=== PATIENT | female | born 1990 | race American Indian/Alaskan Native ===

== ENCOUNTER 2019-02-11 14:02 | Emergency (ER) | payer BC ==
--- NOTE | 2019-02-11 16:41 | Emergency Department Report ---
HPI - General Chief Complaint: Syncope Time Seen by Provider: 02/11/19 16:10 - HPI HPI: 28-year-old female presents to the emergency department by EMS from work after she had a syncopal episode. The patient was sitting at her desk working on the computer when she says that the screen became blurry and it seemed brighter than usual. She had a mild headache. She then got up to go to the bathroom and began feeling lightheaded and dizzy. The patient decided she was going to go home and went to sign out and this is when she passed out. She woke up shortly afterwards with some other employees standing around her and EMS was called. The patient was found to have some low blood pressure and some tachycardia. An Accu-Chek was done and it was 266. Currently the patient is awake, alert and oriented and says that she just feels fatigued. The headache has since resolved. She does not have a primary care physician. Denies any to bacco or illicit drug use. History of insulin-dependent diabetes on Levemir. ED Past Medical Hx - Past Medical History Previous Medical History?: Yes Hx Diabetes: Yes (type 2 on levemir) - Surgical History Past Surgical History?: No - Social History Smoking Status: Never Smoker Substance Use Type: Alcohol - Medications Home Medications: Home Medications Medication Instructions Recorded Confirmed Last Taken Type Nitrofurantoin Wilkin/M-Cryst 100 mg PO Q12HR #14 capsule 02/11/19 Unknown Rx [Macrobid CAP] ED Review of Systems ROS: Stated complaint: LOW BP Other details as noted in HPI Comment: All other systems reviewed and negative Constitutional: denies: chills, fever Eyes: denies: eye pain, eye discharge ENT: denies: ear pain, throat pain Respiratory: denies: cough, shortness of breath Cardiovascular: syncope. denies: chest pain Gastrointestinal: denies: abdominal pain, vomiting Genitourinary: denies: dysuria, discharge Musculoskeletal: denies: back pain, arthralgia Skin: denies: rash, lesions Neurological: headache, other (dizziness, lightheadedness) Physical Exam - Physical Exam Vital Signs: Vital Signs 02/11/19 15:13 Pulse Rate 102 H Respiratory 18 Rate Blood Pressure 96/57 O2 Sat by Pulse 96 Oximetry Physical Exam: GENERAL: The patient is well-developed well-nourished. HEENT: Normocephalic. Atraumatic. Patient has moist mucous membranes. EYES: Extraocular motions are intact. Pupils equal and reactive to light bilaterally. No nystagmus. NECK: Supple. Trachea is midline CHEST/LUNGS: Clear to auscultation. There is no respiratory distress noted. HEART/CARDIOVASCULAR: Regular. There is no tachycardia. ABDOMEN: Abdomen is soft, nontender. Patient has normal bowel sounds. There is no abdominal distention. SKIN: Skin is warm and dry. NEURO: The patient is awake, alert, and oriented. The patient is cooperative. The patient has no focal neurologic deficits. Normal speech. Cranial nerves II through XII grossly intact. No pronator drift. No facial asymmetry. MUSCULOSKELETAL: There is no tenderness or deformity. There is no limitation range of motion. There is no evidence of acute injury. ED Course Vital Signs 02/11/19 15:13 Pulse Rate 102 H Respiratory 18 Rate Blood Pressure 96/57 O2 Sat by Pulse 96 Oximetry ED Medical Decision Making - Lab Data Result diagrams: 02/11/19 17:14 02/11/19 17:14 - EKG Data -: EKG Interpreted by Ca EKG shows normal: sinus rhythm, axis, intervals, QRS complexes, ST-T waves Rate: normal - EKG Data When compared to previous EKG there are: previous EKG unavailable Interpretation: normal EKG - Medical Decision Making This patient presents to the emergency department after having a syncopal episode at work. She appears to be dehydrated and is positive on orthostatics. EKG is normal without ST elevation PR, ischemia or dysrhythmia. On examination she does not have any focal, motor or sensory deficits in her cranial nerves are intact. Labs show a slightly elevated but equivocal first troponin level that has trended downwards. She has no complaints of any chest pain, shortness of breath, back pain. Urinalysis shows a urinary tract infection. UDS negative. The patient was reevaluated multiple times for multiple hours and says she is feeling well. There is been no further episodes of passing out and there has been resolution of her dizziness/lightheadedness. She was seen in the laboratory in the emergency department and both appears and feels stable. Patient will be placed on antibiotics for the UTI. She has been given multiple referrals for primary care. She has been instructed to return to the emergency Department with any worsening of her symptoms or any acute distress. - Differential Diagnosis hypotension, vasovagal, dysrhythmia, PR Critical Care Time: No Critical care attestation.: If time is entered above; I have spent that time in minutes in the direct care of this critically ill patient, excluding procedure time. ED Disposition Clinical Impression: Syncope Qualifiers: Syncope type: unspecified Qualified Code(s): R55 - Syncope and collapse UTI (urinary tract infection) Qualifiers: Urinary tract infection type: acute cystitis Hematuria presence: without hematuria Qualified Code(s): N30.00 - Acute cystitis without hematuria Disposition: TO HOME OR SELFCARE Is pt being admited?: No Condition: Stable Instructions: Urinary Tract Infection in Women (ED), Syncope (ED) Additional Instructions: Please follow up with a primary care physician in the next few days. Return to the emergency department with any further episodes of passing out, worsening of your symptoms, or with any acute distress. Take the antibiotics as prescribed. Prescriptions: Nitrofurantoin Wilkin/M-Cryst [Macrobid CAP] 100 mg PO Q12HR #14 capsule Referrals: PRIMARY MD LEONEL [Primary Care Provider] - 3-5 Days LEON RATLIFF MD [Staff Physician] - 3-5 Days JIMMY WYNN MD [Staff Physician] - 3-5 Days [facility] [Outside] - 3-5 Days Time of Disposition: 20:47
[2019-02-11] MEDS ORDERED: SODIUM CHLORIDE 0.9% 1000 ML 1,000 ML IV ONE (17:16)
[2019-02-11 17:30] LABS: Basophils % (Auto) 0.4 % (0.0-1.8); Eosinophils # (Auto) 0.1 K/mm3 (0.0-0.4); Eosinophils % (Auto) 1.3 % (0.0-4.3); Hematocrit 40.7 % (30.3-42.9); Hemoglobin 13.3 gm/dl (10.1-14.3); Lymphocytes # (Auto) 1.7 K/mm3 (1.2-5.4); Lymphocytes % (Auto) 15.6 % (13.4-35.0); Mean Corpuscular HGB Conc 33 % (30-34); Mean Corpuscular Volume 84 fl (79-97); Monocytes # (Auto) 1.1 K/mm3 (0.0-0.8); Monocytes % (Auto) 10.8 % (0.0-7.3); Platelet Count 398 K/mm3 (140-440); Red Blood Count 4.84 M/mm3 (3.65-5.03); Red Cell Distribution Width 13.2 % (13.2-15.2)
[2019-02-11 17:49] LABS: Albumin 3.7 g/dL (3.9-5); Calcium 9.1 mg/dL (8.4-10.2)
[2019-02-11 20:10] LABS: Bacteria,Urine 1+ /HPF (Negative); Bilirubin,Urine NEG (Negative); Blood,Urine LG (Negative); Color,Urine Amber (Yellow); Hyaline Casts,Urine 13 /LPF; Mucus,Urine 2+ /HPF; Urobilinogen,Urine < 2.0 mg/dL (<2.0)
[2019-02-11 20:11] LABS: Protein,Urine >500 mg/dL (Negative)
[2019-02-11 20:12] LABS: RBC,Urine > 182.0 /HPF (0.0-6.0)
[2019-02-11 20:22] LABS: Amphetamine Screen,Urine PRESUMPTIVE NEGATIVE; Benzodiazepines Screen,Urine PRESUMPTIVE NEGATIVE; Cannabinoid Screen,Urine PRESUMPTIVE NEGATIVE; Cocaine Screen,Urine PRESUMPTIVE NEGATIVE; Methadone Screen,Urine PRESUMPTIVE NEGATIVE; Opiate Screen,Urine PRESUMPTIVE NEGATIVE
[2019-02-11 20:45] VITALS: BP 116/81
== END 2019-02-11 21:00 | disposition home or self-care (01) ==
LOC: ED 14:02
DX: N39.0 Urinary tract infection, site not specified (principal); R55 Syncope and collapse; E11.9 Type 2 diabetes mellitus without complications
CPT/HCPCS: 36415; 80053; 80307; 81001; 84443; 84484; 85025; 87086; 93005; 93010; 96360; 99284; J7030